=== PATIENT | female | born 1950 | race Caucasian/White ===

== ENCOUNTER 2020-12-21 08:38 | Emergency (ER) | payer OTHER, SELFPAY ==
[2020-12-21] VITALS (23 sets, daily range): BP systolic 119–189; BP diastolic 60–121; PULSE 69–95; RESP 11–22; TEMP 36.7; O2SAT 91–98
--- NOTE | 2020-12-21 09:00 | RT.EKG_ITS ---
APPROVED REPORT Exam: Resting ECG Reason for Exam: chest pain Patient Location: E HR:80 bpm ECG Measurements Heart Rate 80 AXIS UT 169 P 36 QRSd 104 QRS 41 QT 401 T 63 QTc 465 Conclusion Sinus rhythm...normal P axis,nonspecific st changes
--- NOTE | 2020-12-21 09:04 | W.ED.GENAD ---
Discharge Plan Disposition Patient Disposition: HOME Condition: Improving Discharge Details Clinical Impression: Lingular pneumonia Primary Care Provider: Unknown,Unknown ED Provider: Adis Wood Home Meds and New Rx's Prescriptions: New prednisone 50 mg tablet 50 mg PO DAILY 5 Days Qty: 5 RF: 0 cefdinir 300 mg capsule 300 mg PO Q12H 10 Days Qty: 20 RF: 0 Continued levothyroxine [Synthroid] 150 mcg Tablet 150 mcg PO DAILY RF: 0 furosemide 20 mg Tablet 20 mg PO DAILY RF: 0 carisoprodol 250 mg Tablet 250 mg PO QHS PRNRF: 0 lovastatin 10 mg Tablet 10 mg PO DAILY RF: 0 Xarelto 10 mg Tablet 10 mg PO DAILY RF: 0 Discharge Instructions Instructions: Pneumonia (ED) Additional Instructions: Your work-up in the emergency room today included chest x-ray, EKG, blood work with cardiac troponin. Home to rest today. Small, frequent sips of fluids to maintain hydration. Take antibiotics as prescribed once daily, next dose is tomorrow. Take prednisone once daily until gone. Return to the emergency department or see nearest health care facility for any acute concerns. [facility] pharmacy in [facility] opens at 9 AM on Tuesday. Stand Alone Forms: PENDING COVID-19 TESTING Medical Decision Making 70-year-old female with a history of oxygen dependent COPD presents with complaint of cough. She does take a diuretic and is on rivaroxaban for history of PE. She states she developed a head cold 3 to 4 days ago and now has cough with congestion. She arrives with a 90% sat on her home levels of oxygen, alert and interactive. Her exam does reveal bibasilar rhonchi and end expiratory wheeze. Differential gnosis includes COPD exacerbation, bronchitis, pneumonia. We will certainly obtain a screening COVID-19 test. Patient IV access established, given parenteral steroids, DuoNeb updraft, referred for screening EKG, chest x-ray and laboratory. Diagnostics: White blood cell count of 11, reassuring chemistries and negative troponin with a BNP of 10. Chest x-ray reveals a lingular infiltrate. Right lung clear. Patient improved with fluids and inhaled DuoNeb. She received 1 g of ceftriaxone IV I will place her on a course of oral cephalosporin. Additionally will place her on a short burst of prednisone as well. She is stable for outpatient management. She understands indications to seek repeat evaluation. Do not feel she requires further monitoring and repeat troponin. HPI General Mode of arrival: ambulatory. Date/Time Provider Initiated Documentation: 12/21/20 08:48. Limitations to Documentation: no limitations. Information obtained by: patient. History of Present Illness 70 year old F presents to the emergency department with the chief complaint of History of COPD. c/o head cold and cough, no fever, described as moderate, and is localized to the chest. Patient started experiencing this day(s) and it has been intermittent. No relieving factors improve symptom(s), No exacerbating factors reported . Patient notes denies fever/chills. Patient did receive the following treatments prior to arrival, none Related Data Home Medications Medication Instructions Recorded Confirmed Xarelto 10 mg PO DAILY 12/21/20 12/21/20 carisoprodol 250 mg PO QHS PRN 12/21/20 12/21/20 cefdinir 300 mg PO Q12H 10 Days #20 cap 12/21/20 furosemide 20 mg PO DAILY 12/21/20 12/21/20 levothyroxine [Synthroid] 150 mcg PO DAILY 12/21/20 12/21/20 lovastatin 10 mg PO DAILY 12/21/20 12/21/20 prednisone 50 mg PO DAILY 5 Days #5 tab 12/21/20 Previous Rx's Medication Instructions Recorded cefdinir 300 mg PO Q12H 10 Days #20 cap 12/21/20 prednisone 50 mg PO DAILY 5 Days #5 tab 12/21/20 Allergies Allergy/AdvReac Type Severity Reaction Status Date / Time No Known Allergies Allergy Unverified 12/21/20 08:52 General Stated Complaint: SOB STERLING: 3 Review of Systems Narrative: Oxygen dependent COPD, lives in the [facility] Social History Smoking/Tobacco Use Status: Former Tobacco Use Smoking risk assessment performed?: Yes Alcohol Intake: never Drug use: Never Substance use type: does not use Do you feel safe at home: Yes Do you feel safe in your relationship?: Yes Exam Narrative Exam Narrative: GEN: awake, alert, oriented 3. Pleasant, well groomed, interactive. HEAD: Normocephalic, atraumatic ENT: External ear exam unremarkable EYES: PERRL, EOMI NECK: Full ROM, no GAGE, no menigismus CHEST/RESP: Nontender, basilar rhonchi and end expiratory wheeze bilaterally CARDIOVASCULAR: RRR, no murmur, rub annie. 2+ Rad pulse bilateral ABDOMEN: Soft, nontender, no mass. +Bowel sounds EXT: Full ROM, no edema, no rash Neuro: Grossly normal neurologic exam, conversant, interactive. Psych: Speech fluent, thoughts congruent, affect normal Course Vital Signs Vital signs: Vital Signs Temperature 36.7 C 12/21/20 08:47 Pulse 86 12/21/20 08:47 Blood Pressure 189/87 H 12/21/20 08:47 Pulse Oximetry 98 12/21/20 08:47 Temperature 36.7 C 12/21/20 08:47 Temperature Source Temporal Artery Scan 12/21/20 08:47 Pulse 86 12/21/20 08:47 Respiratory Rate 16 12/21/20 08:56 Respiratory Effort Labored 12/21/20 08:58 Respiratory Depth Normal 12/21/20 08:56 Respiratory Pattern Normal 12/21/20 08:56 Blood Pressure 189/87 H 12/21/20 08:47 Blood Pressure Position Sitting 12/21/20 08:47 Pulse Oximetry 98 12/21/20 08:47 Oxygen Delivery Method Nasal Cannula 12/21/20 08:47 Oxygen Flow Rate 4 12/21/20 08:47 Pain Level 5 12/21/20 08:56 Comment 12/21/20 08:47
[2020-12-21 09:26] LABS: Abs Immature Grans 0.07 10^3/uL (0.0-0.06); Absolute Eosinophil Count 0.18 10^3/uL (0.0-0.7); Absolute Lymphocyte Count 2.17 10^3/uL (1.2-3.4); Absolute Monocyte Count 0.84 10^3/uL (0.1-0.8); Basophils % 0.4; Eosinophils % 1.6; HGB 14.7 g/dL (11.2-15.7); Immature Grans % 0.6; Lymphocytes % 19.4; MCH 29.9 pg (27.0-33.0); MCV 93.5 fL (80-95); MPV 10.9 fL (8.0-11.0); Monocytes % 7.5; Neutrophils % 70.5; Nucleated RBC 0 %; Platelet Count 214 10^3/uL (130-400); RBC 4.92 10^6/uL (3.93-5.22); RDW-SD 44.6 fL; WBC 11.17 10^3/uL (4.4-10.8)
[2020-12-21 09:28] LABS: Absolute Basophil Count 0.04 10^3/uL (0.0-0.2); Absolute Neutrophil Count 7.87 10^3/uL (1.2-6.7)
--- NOTE | 2020-12-21 09:34 | DI.RAD_ITS ---
Exam(s) XR PORTABLE CHEST AP EXAM: XR PORTABLE CHEST AP CLINICAL HISTORY: copd, cough, sputum TECHNIQUE: 2D digital imaging was performed. COMPARISON: No exams were available for comparison FINDINGS: LUNGS: Elevated right diaphragm.questionable lingular infiltrate. Linear scarring vs. Atelectasis l eft base. no pleural abnormality seen. HEART: Mildly enlarged. MEDIASTINUM: Normal. BONES: Degenerative changes.Spinal stimulator. IMPRESSION: Questionable lingular infiltrate. DATA REPOSITORY: RADIATION DOSE DELIVERED:
[2020-12-21] MEDS: methylPREDNISolone SUCC 125 MG VIAL IVP (09:35)
[2020-12-21] MEDS: Albuterol/Ipratropium 3 ML UPD VIAL UPD (09:35)
[2020-12-21 09:44] LABS: ALT 40 U/L (14-59); AST 26 U/L (15-37); Albumin 3.8 g/dL (3.4-5.0); Alkaline Phosphatase 79 U/L (46-116); Anion Gap 7.1 mmol/L (3-11); BUN 16 mg/dL (7-18); Bilirubin, Total 0.3 mg/dL (0.2-1.0); CO2 29.9 mmol/L (21.0-32.0); CREATININE 0.8 mg/dL (0.55-1.02); Calcium 8.7 mg/dL (8.5-10.1); Chloride 106 mmol/L (98-107); Glucose 117 mg/dL (74-106); Magnesium 2.3 mg/dL (1.8-2.4); NT-proBNP 10 pg/mL (<300); Potassium 4.1 mmol/L (3.5-5.1); Sodium 143 mmol/L (136-145); Total Protein 7.6 g/dL (6.4-8.2)
[2020-12-21 09:48] LABS: Troponin I < 0.05 ng/mL (<0.06)
--- NOTE | 2020-12-21 10:04 | DI.VRAD_ITS ---
PROCEDURE INFORMATION: Exam: XR Chest Exam date and time: 12/21/2020 9:17 AM Age: 70 years old Clinical indication: Patient HX: Cough, copd, sputum TECHNIQUE: Imaging protocol: XR of the chest. Views: 1 view. COMPARISON: No relevant prior studies available. FINDINGS: Lungs: Minimal lingular interstitial infiltrate. Right lung clear. Pleural spaces: Unremarkable. No pleural effusion. No pneumothorax. Heart/Mediastinum: Unremarkable. No cardiomegaly. Bones/joints: Unremarkable. IMPRESSION: Minimal lingular interstitial infiltrate. Dictated and Authenticated by: Yao Lowry MD. Ordering:PATRIA Arceo MD
[2020-12-21] MEDS: cefTRIAXone 1 GM/50 ML BAG IVPB (10:38)
[2020-12-24 13:05] LABS: COVID-19 RT-PCR UVMMC Result Negative (Negative)
--- NOTE | 2020-12-25 11:32 | NUR.NOTE ---
verified patient's identity and relayed negative covid test results to her.
== END 2020-12-21 11:22 | disposition home or self-care (01) ==
PROVIDERS: Emergency Provider Emergency Medicine
DX: J44.0 Chronic obstructive pulmonary disease with (acute) lower respiratory infection (principal); J18.8 Other pneumonia, unspecified organism; Z87.891 Personal history of nicotine dependence; Z20.822 Contact with and (suspected) exposure to COVID-19; Z03.818 Encounter for observation for suspected exposure to other biological agents ruled out
CPT/HCPCS: 36415; 80053; 93005; 94640; 96365; 96375; 99285; U0003; 71045; 83735; 83880; 84484; 85025; 93010; 99284; J0696; J2930; J7620